=== PATIENT | female | born 1970 | race Caucasian/White ===

== ENCOUNTER 2021-10-18 13:58 | Emergency (ER) | payer OTHER ==
[~2021-10-18] VITALS: Ht 157 cm; Wt 68.0 kg
[2021-10-18] MEDS ORDERED: TETANUS,DIPTH,PERTUSS P/F (BOOSTRIX) 0.5 ML VIAL IM ONE (14:15)
[2021-10-18] MEDS ORDERED: fentaNYL INJ 100 MCG/2 ML AMP IVP ONE (14:15)
[2021-10-18 14:33] LABS: BASOPHILS % (AUTO) 1 % (0-10); EOSINOPHILS % (AUTO) 0 % (0-10); HEMATOCRIT 39 % (35-52); HEMOGLOBIN 12.9 g/dL (11.5-16.0); LYMPHOCYTES # (AUTO) 2.6 10^3/uL (1.0-4.0); LYMPHOCYTES % (AUTO) 30 % (12-44); MEAN CORPUSCULAR HEMOGLOBIN 31 pg (25-34); MEAN CORPUSCULAR HGB CONC 33 g/dL (32-36); MEAN CORPUSCULAR VOLUME 94 fL (80-99); MEAN PLATELET VOLUME 11.5 fL (9.0-12.2); MONOCYTES # (AUTO) 0.5 10^3/uL (0.0-1.0); MONOCYTES % (AUTO) 6 % (0-12); NEUTROPHILS # (AUTO) 5.2 10^3/uL (1.8-7.8); NEUTROPHILS % (AUTO) 62 % (42-75); PLATELET COUNT 229 10^3/uL (130-400); WHITE BLOOD COUNT 8.4 10^3/uL (4.3-11.0)
--- NOTE | 2021-10-18 14:39 | Diagnostic Imaging Report ---
EXAMINATION: Chest 1 view HISTORY: Chest injury COMPARISON: None available. FINDINGS: The lungs are clear without edema or pneumonia. No pleural effusion or pneumothorax. Heart size is normal. IMPRESSION: 1. Clear lungs. Dictated by: Dictated on workstation # [id number]
--- NOTE | 2021-10-18 14:39 | Diagnostic Imaging Report ---
EXAMINATION: Right wrist 3 or more views. HISTORY: Wrist injury. COMPARISON: None available. FINDINGS: There is a displaced and angulated fracture of the right distal radius. It extends into the radiocarpal joint. No other fracture is seen. IMPRESSION: Displaced and angulated fracture of the right distal radius extending into the radiocarpal joint. Dictated by: Dictated on workstation # [id number]
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
--- NOTE | 2021-10-18 14:44 | Diagnostic Imaging Report ---
EXAMINATION: Left tibia and fibula 2 views. HISTORY: Leg injury. COMPARISON: None available. FINDINGS: There is a mildly comminuted transverse fracture of the left distal tibia. No other fracture is seen. No dislocation. IMPRESSION: Mildly comminuted left distal tibial fracture. Dictated by: Dictated on workstation # [id number]
[2021-10-18 14:48] LABS: ALBUMIN 4.3 GM/DL (3.2-4.5); CREATININE SERUM 0.96 MG/DL (0.60-1.30); POTASSIUM 3.2 MMOL/L (3.6-5.0); TOTAL PROTEIN 6.9 GM/DL (6.4-8.2)
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
[2021-10-18] MEDS ORDERED: KETAMINE 50 MG/5 ML SYRINGE IV ONE ×2 (15:45)
[2021-10-18 16:46] VITALS: BP 126/71
[2021-10-18] MEDS ORDERED: morphine INJ 10 MG/ML 1ML (SYR OR VIAL) IVP STA (17:14)
[2021-10-18] MEDS ORDERED: ONDANSETRON 4 MG/2 ML (SDV) Z0FRAN IVP ONE (17:15)
== END 2021-10-18 17:25 | disposition short-term general hospital (02) ==
LOC: ER 13:59
DX: S52.591A Other fractures of lower end of right radius, initial encounter for closed fracture (principal); S82.225A Nondisplaced transverse fracture of shaft of left tibia, initial encounter for closed fracture; S80.211A Abrasion, right knee, initial encounter; S80.212A Abrasion, left knee, initial encounter; S90.812A Abrasion, left foot, initial encounter; S70.211A Abrasion, right hip, initial encounter; Z23 Encounter for immunization; Z32.02 Encounter for pregnancy test, result negative; V23.4XXA Motorcycle driver injured in collision with car, pick-up truck or van in traffic accident, initial encounter
CPT/HCPCS: 25605; 27752; 29505; 71045; 73110; 73590; 73610; 80053; 84703; 85025; 90471; 96374; 96375; 99291; G0390; 36415; 90715